=== PATIENT | male | born 1975 | race Caucasian/White ===

== ENCOUNTER 2022-04-21 10:58 | Emergency (ER) | payer OTHER, SELFPAY ==
--- NOTE | ~2022-04-21 | CT_ITS ---
EXAMINATION: CT ABDOMEN AND PELVIS WITH CONTRAST CLINICAL INFORMATION: Left lower quadrant pain status post hernia repair COMPARISON: None TECHNIQUE: Multidetector volumetric images were obtained from the superior aspect of the liver through the pubic symphysis following administration 85 mL of Omnipaque 350 intravenous contrast. Sagittal and coronal reformatted images were obtained on the technologist's workstation. Oral contrast: No This CT examination was performed using dose optimization techniques as appropriate, variously including the following: *Automated exposure control *Adjustment of mA and/or kV according to patient size (this includes techniques or standardized protocols for targeted exams where dose is matched to indication/reason for exam; i.e. extremities or head) *Use of iterative reconstruction technique DLP: 675 mGy-cm FINDINGS: LUNG BASES: Bilateral basilar atelectasis LIVER, GALLBLADDER, AND BILIARY TREE: The liver is normal in size, shape, and attenuation. No focal hepatic lesion or biliary ductal dilatation is present. The gallbladder is not seen. PANCREAS: Unremarkable. SPLEEN: Unremarkable. ADRENAL GLANDS: Unremarkable. KIDNEYS AND URETERS: The kidneys are normal in size, shape, and attenuation. No hydronephrosis, hydroureter, or calculi seen. No perinephric stranding. BLADDER: Unremarkable. GASTROINTESTINAL TRACT: The small and large bowel are unremarkable. The appendix is unremarkable. ABDOMINAL WALL: In the left inguinal region there is fluid density with mild soft tissue stranding. This may represent postoperative change. Breast prominent vessels also in the region.. Findings also suggest the beginnings of a small right inguinal herniation LYMPH NODES: Normal. VASCULAR: Unremarkable. PELVIC VISCERA: Prominent prostate. OSSEOUS STRUCTURES: Unremarkable. CT/CT abdomen pelvis w IV con IMPRESSION: In the left inguinal canal region there is fluid density and some soft tissue stranding. Findings may suggest postoperative appearance. Correlation recommended clinically. Attention to follow-up. Findings suggest the beginnings of a small right inguinal herniation. Prominent prostate is noted. Bilateral basilar atelectasis Fleischner guidelines were followed.
[2022-04-21 11:39] VITALS: BP 108/63; PULSE 66; RESP 18; TEMP 35.7; O2SAT 97; BMI 28.6
--- OUTSIDE RECORDS SUMMARY | 2022-04-21 12:19 | XMS_ITS | Continuity of Care Document ---
:[address] [facility] Care Team Providers Name Role Phone [facility] Unavailable Unavailable Problems Combined list of problems from Department of Defense and Veterans Affairs facilities. It does not include entries that were removed or entered in error. Problem Status Onset Date Problem Type Date of Comments Source Resolution visit for: Inactive Condition [facility] preoperative exam astigmatism - Active Condition [facility] regular visit for: Active Condition [facility] administrative purpose refractive error - Active Condition D oD myopia ganglion right Active Condition [facility] wrist Medications Combined list of outpatient medications from Department of Defense and Veterans Affairs facilities. Medications provided include 1) outpatient medications from the last 15 months, and 2) patient-reported medications. Medication Details Route Status Patient Prescription Prescription Last Ordering Order Source Instructions Expires Number Dispense Provider Date Date atorvastati Oral Ordered 09/29/2022 A mbulat n 40 mg 40 mg, Oral, Daily, # 90 EA, 1 total refill(s), Hard Stop, DANG [Federal Rx: #90 last filled 09/29/21] (given ory tablet by Pharmac mouth) y clindamycin Ordered 08/30/2022 A mbulat 1% lotion See Rx Instructions, BID, # 60 mL, 2 total refill(s), Hard Stop, DANG [Federal Rx: #60 last filled 11/14/21] ory [60mL] Pharmac y sertraline Oral Ordered 09/15/2022 Am bulat 25 mg 25 mg, Oral, Daily, # 90 EA, 3 total refill(s), Hard Stop, DANG [Federal Rx: #90 last filled 12/12/21] (given ory tablet by Pharmac mouth) y Allergies, Adverse Reactions, Alerts Combined list of allergies from Department of Defense and Veterans Affairs facilities. It does not include entries that were removed or entered in error. Substance Category Reaction Severity Reaction Status Date Comments S ource type Reported No Known Drug Drug active 10/19/2005 Ramya munroe Allergies allergy allergy [facility] Immunizations Combined list of available immunizations from the Department of Defense and Veterans Affairs facilities. Immunization Series Date Administered Site Reaction Lot CVX Drug St atus Comments Source Given By Number Code Orthotist Or Prosthetist COVID Vaccine [id number] PFIZER complet C OVID Vaccine ? Pfizer Ambulat ? Pfizer 2020 ed 05/21/21 ory Given Pharmac y influenza, [id number] 158 GlaxoSmithKli comple t influenza, injectable, quadrivalent Ambulat injectable, 2020 ne ed 03/03/21 ory quadrivalent Given P harmac y COVID Vaccine [id number] 207 complet C OVID Vaccine ? Moderna Ambulat ? Moderna 2020 ed 10/15/20 ory Given Pharmac y tetanus, [id number] sanofi complet tetan us, diphtheria, acellular pertussis Ambulat diphtheria, 2020 pasteur ed ory acellular Given Phar mac pertu is y COVID Vaccine [id number] 207 complet C OVID Vaccine ? Moderna Ambulat ? Moderna 2020 ed 09/16/20 ory Given Pharmac y influenza, [id number] Seqirus complet in fluenza, seasonal, injectable-pf Ambulat seasonal, 2019 579 ed 03/16/20 or y injectable-pf Given Pharmac y influenza, [id number] 158 complet infl uenza, injectable, quadrivalent Ambulat injectable, 2018 IBED ed 04/20/19 ory quadrivalent Given P harmac y influenza, 4461 158 Seqirus complet in fluenza, injectable, quadrivalent Ambulat injectable, 2017 1A ed 03/29/18 ory quadrivalent Given P harmac y influenza, 22 4461 158 Seqirus (SEQ) comp let influenza DoD injectable, 2017 1A ed , quadrivalent, inject abl contains e, preservative quadriv al ent, contains preservat amita influenza, TRANSCR 158 complet infl uenza, injectable, quadrivalent Ambulat injectable, 2016 IBED ed 03/25/17 ory quadrivalent Given P harmac y influenza, 1 Transcribed complet influenza DoD injectable, 2017 (TRS) ed , quadrivalent, inject abl contains e, preservative quadriv al ent, contains preservat amita influenza, 1000704 141 Seqirus complet in fluenza, seasonal, injectable Ambulat seasonal, 2015 1A ed 03/15/16 or y injectable Given Pha rmac y Influenza, 1 [id number] 141 Seqirus (SEQ) comp let Influenza DoD , 2015 1A ed , injectable seasonal, injectabl e influenza, 11240307 141 CSL Behring comple t influenza, seasonal, injectable Ambulat , 2014 1A ed 02/26/15 or y injectable Given Pha rmac y Influenza, 19 [id number] 141 CSL complet Infl uenza DoD , 2014 1A Biotherapies, ed , injectable Inc. (CSL) seas onal, injectabl e hepatitis B 4L 43 GlaxoSmithKli compl et hepatitis B adult vaccine Ambulat adult vaccine 2014 ne ed 07/22/14 ory Given Pharmac y hepatitis B 3 4L 43 SmithKline complet hepatitis DoD vaccine, 2014 (SKB) ed B adult dosage vaccine , adult dosage influenza, 141 ID Biomedical comple t influenza, seasonal, injectable Ambulat , 2013 ed 04/15/14 o ry injectable Given Pha rmac y Influenza, 1 141 (IDB) complet Influe nza DoD , 2013 ed , injectable seasonal, injectabl e hepatitis B 4L 43 GlaxoSmithKli compl et hepatitis B adult vaccine Ambulat adult vaccine 2013 ne ed 4 ory Given Pharmac y hepatitis B 2 3744L 43 SmithKline complet hepatitis DoD vaccine, 2013 (SKB) ed B adult dosage vaccine , adult dosage hepatitis B 3744L 43 GlaxoSmithKli compl et hepatitis B adult vaccine Ambulat adult vaccine 2013 ne ed 11/20/13 ory Given Pharmac y hepatitis B 1 3744L 43 SmithKline complet hepatitis DoD vaccine, 2013 (SKB) ed B adult dosage vaccine , adult dosage influenza, [id number] 141 CSL Behring comple t influenza, seasonal, injectable Ambulat , 2012 1A ed 04/10/13 o ry injectable Given Pha rmac y Influenza, 1 8640307 141 CSL complet Infl uenza DoD , 2012 1A Biotherapies, ed , injectable Inc. (CSL) seas onal, injectabl e influenza, 7040308 141 CSL [employer]ring comple t influenza, seasonal, injectable Ambulat seasonal, 2011 1A ed 03/28/12 o ry injectable Given Pha rmac y Influenza, 16 7040308 141 CSL complet Infl uenza DoD seasonal, 2011 1A Biotherapies, ed , injectable Inc. (CSL) seas onal, injectabl e influenza 094P 111 Medimmune Inc compl et influenza virus vaccine, live Ambulat virus 2010 ed 04/20/11 ory vaccine, live Given Pharmac y influenza 15 094P 111 MedImmune, complet influenza DoD virus 2010 Inc. (MED) ed virus vaccine, vaccine, live, live, attenuated, attenuat e for d, for intranasal intranasa use l use tetanus, [id number] 115 sanofi complet tetan us, diphtheria, acellular pertussis Ambulat diphtheria, 2010 pasteur ed 1 ory acellular Given Phar mac pertu is y tetanus 1 900AA 115 Sanofi complet tetanu s DoD toxoid, 2010 Pasteur ([facility]) ed toxo id, reduced reduced diphtheria diphtheri toxoid, and a toxoid , acellular and pertu is acellular vaccine, pertussis adsorbed vaccine, adsorbed influenza 061P 111 Medimmune Inc compl et influenza virus vaccine, live Ambulat virus 2009 ed 05/02/10 ory vaccine, live Given Pharmac y influenza 1 061P 111 MedImmune, complet influenza DoD virus 2009 Inc. (MED) ed virus vaccine, vaccine, live, live, attenuated, attenuat e for d, for intranasal intranasa use l use anthrax 11/20/ UGD059 24 Emergent complet anthr ax vaccine Ambulat vaccine 2009 Biosolutions ed 0 ory Given Pharmac y anthrax 5 [id number] 24 Emergent complet anthr ax DoD vaccine 2009 BioDefense ed vaccine [employer] [place] (MIP) Novel 050P 127 Novartis complet Novel [id number], injectable Ambulat influenza-H1N 2009 1 Pharmaceutica ed 07/31/09 ory 1-09, ls Given Pharmac injectable y Novel 1 050P 127 Novartis complet Novel DoD influenza-H1N 2010 1 Pharmaceutica ed influenza 1-09, l Kyaw. (NOV) -H1N1- 09, injectable injectabl e influenza [id number] 111 Mediune Inc compl et influenza virus vaccine, live Ambulat virus 2008 ed 04/03/09 ory vaccine, live Given Pharmac y influenza 1 [id number] 111 MedImmune, complet influenza DoD virus 2008 Inc. (MED) ed virus vaccine, vaccine, live, live, attenuated, attenuat e for d, for intranasal intranasa use l use typhoid Vi AM478-5 101 sanofi complet typ hoid Vi capsular polysaccharide vac Ambulat capsular 2007 pasteur ed 05/22/08 o ry polysaccharid Given Pharmac e vac y typhoid Vi 1 ZP403-7 101 Sanofi complet typ hoid DoD capsular 2007 Pasteur ([facility]) ed Vi polysaccharid capsul ar e vaccine polysacch aride vaccine influenza [id number] 111 Medimmune Inc compl et influenza virus vaccine, live Ambulat virus 2007 ed 04/17/08 ory vaccine, live Given Pharmac y influenza 1 792000V 111 MedImmune, complet influenza DoD virus 2007 Inc. (MED) ed virus vaccine, vaccine, live, live, attenuated, attenuat e for d, for intranasal intranasa use l use influenza [id number] 111 Medimmune Inc compl et influenza virus vaccine, live Ambulat virus 2006 ed 04/19/07 ory vaccine, live Given Pharmac y influenza 1 285090C 111 MedImmune, complet influenza DoD virus 2006 Inc. (MED) ed virus vaccine, vaccine, live, live, attenuated, attenuat e for d, for intranasal intranasa use l use influenza [id number] 15 sanofi complet infl uenza virus vaccine,split Ambulat virus 2005 pasteur ed 04/21/06 ory vaccine,split Given Pharmac y influenza 1 [id number] 15 Sanofi complet infl uenza DoD virus 2005 Pasteur ([facility]) ed virus vaccine, vaccine, split virus split (incl. virus purified (incl. surface purified antigen)-reti surfac e red CODE antigen)- retired CODE varicella 0 () Not varicella DoD virus vaccine 2006 Given virus vaccine typhoid Z0276 41 sanofi complet typhoid vaccine, parenteral Ambulat vaccine, 2005 pasteur ed 02/22/06 or y parenteral Given Pha rmac y typhoid 1 Z0276 41 Sanofi complet typhoid DoD vaccine, 2005 [facility] ([facility]) ed vac cine, parenteral, parenter a other than l, other acetone-kille than d, dried acetone-k illed, dried influenza [id number] 15 sanofi complet infl uenza virus vaccine,split Ambulat virus 2004 pasteur ed 04/21/05 ory vaccine,split Given Pharmac y influenza 1 [id number] 15 Sanofi complet infl uenza DoD virus 2004 [facility] ([facility]) ed virus vaccine, vaccine, split virus split (incl. virus purified (incl. surface purified antigen)-reti surfac e red CODE antigen)- retired CODE influenza [id number] 111 Mediune Inc compl et influenza virus vaccine, live Ambulat virus 2004 ed 07/13/04 ory vaccine, live Given Pharmac y influenza 0 [id number] 111 MedImmune, complet influenza DoD virus 2004 Inc. ([facility]) ed virus vaccine, vaccine, live, live, attenuated, attenuat e for d, for intranasal intranasa use l use typhoid X0481 41 sanofi complet typhoid vaccine, parenteral Ambulat vaccine, 2003 [facility] ed 02/26/04 o ry parenteral Given Pha rmac y typhoid 0 X0481 41 Sanofi complet typhoid DoD vaccine, 2003 [facility] ([facility]) ed vac cine, parenteral, parenter a other than l, other acetone-kille than d, dried acetone-k illed, dried anthrax 01/21/ AYJ647 24 Emergent complet anthr ax vaccine Ambulat vaccine 2003 Biosolutions ed 4 ory Given Pharmac y anthrax 5 01/21/ MUN053 24 Emergent complet anthr ax DoD vaccine 2003 [facility] vaccine [employer] [place] ([facility]) anthrax 06/26/ ZQC395 24 Emergent complet anthr ax vaccine Ambulat vaccine 2003 Biosolutions ed ory Given Pharmac y anthrax 4 06/26/ CUN790 24 Emergent complet anthr ax DoD vaccine 2003 [facility] vaccine [employer] [place] ([facility]) tuberculin 10/05/ [id number] 96 sanofi complet tub erculin purified protein derivative Ambulat purified 2002 a pasteur ed 03/21/03 o ry protein Given Pharma c derivative y influenza 5424 16 sanofi complet influ morena virus vaccine, whole virus Ambulat virus 2002 pasteur ed 03/21/03 ory vaccine, Given Pharm ac whole virus y influenza 0 5424 16 Sanofi complet influ morena DoD virus 2002 [facility] ([facility]) ed virus vaccine, vaccine, whole virus whole virus anthrax FAV 071 24 Emergent complet anth rax vaccine Ambulat vaccine 2002 Biosolutions ed ory Given Pharmac y anthrax 3 01/06/ FAV 071 24 Emergent complet anth rax DoD vaccine 2002 [facility] ed vaccine [employer] [place] ([facility]) anthrax 12/19/ FAV 071 24 Emergent complet anth rax vaccine [facility]ul[facility] ory Given Pharmac y anthrax 2 12/19/ FAV 071 24 Emergent complet anth rax DoD vaccine [facility] [employer] [place] ([facility]) meningococcal 12/10/ [id number] 32 sanofi complet meningococcal polysaccharide (MPSV4) Ambulat polysaccharid 2002 pasteur ed 12/10 ory e (MPSV4) Given Phar mac y meningococcal 0 12/10/ [id number] 32 Sanofi complet meningoco DoD polysaccharid 2002 [facility] ([facility]) ed ccal e vaccine polysacch (MPSV4) aride vaccine (MPSV4) vaccinia [id number] Wyeth complet vaccin ia (smallpox) vaccine Ambulat (smallpox) 2002 Laboratories ed 02/09 ory vaccine Given Pharma c y anthrax 12/03/ POU659 24 Emergent complet anthr ax vaccine Ambulat vaccine 2003 Biosolutions ed ory Given Pharmac y anthrax 1 [id number] 24 Emergent complet anthr ax DoD vaccine [facility] vaccine [employer] [place] ([facility]) vaccinia 0 0071 75 Wyeth-Ayerst complet vaccinia DoD (smallpox) 2002 ([facility]) ed (smallpox vaccine ) vaccine tuberculin [id number] 96 sanofi complet tub erculin purified protein derivative Ambulat purified 2001 pasteur ed 04/19/02 o ry protein Given Pharma c derivative y influenza [id number] 16 sanofi complet infl uenza virus vaccine, whole virus Ambulat virus 2001 pasteur ed 04/19/02 ory vaccine, Given Pharm ac whole virus y tetanus-dipht 526AA 09 sanofi complet tetanus-diphth toxoids (Td) adult/adol Ambulat h toxoids 2001 pasteur ed 04/19/02 ory (Td) Given Pharmac adult/adol y tetanus and 0 526AA 09 Sanofi complet te tanus DoD diphtheria 2001 Pasteur ([facility]) ed a nd toxoids, diphtheri adsorbed, a preservative toxoids , free, for adsorbed, adult use (2 preserv at Lf of tetanus amita fr ee, toxoid and 2 for kelly lt Lf of use (2 Lf diphtheria of toxoid) tetanus toxoid and 2 Lf of diphtheri a toxoid) influenza 0 3AA 16 Sanofi complet infl uenza DoD virus 2001 Pasteur ([facility]) ed virus vaccine, vaccine, whole virus whole virus hepatitis A complet hepat itis A adult vaccine Ambulat adult vaccine 2001 ed 2 ory Given Pharmac y typhoid complet typhoid v accine, parenteral Ambulat vaccine, 2001 ed 02/28/02 ory parenteral Given Pha rmac y typhoid 0 () complet typhoid D oD vaccine, 2001 ed vaccine, parenteral, parenter a other than l, other acetone-kille than d, dried acetone-k illed, dried hepatitis A 2 () complet hepat itis DoD vaccine, 2001 ed A adult dosage vaccine , adult dosage tuberculin [id number] 96 sanofi complet tub erculin purified protein derivative Ambulat purified 2000 pasteur ed 04/19/01 o ry protein Given Pharma c derivative y hepatitis A 0507L 52 Merck & complet hep atitis A adult vaccine Ambulat adult vaccine 2000 Company Inc ed 04/19/01 ory Given Pharmac y influenza [id number] 16 sanofi complet infl uenza virus vaccine, whole virus Ambulat virus 2000 pasteur ed 04/19/01 ory vaccine, Given Pharm ac whole virus y influenza 0 [id number] 16 Sanofi complet infl uenza DoD virus 2000 Pasteur ([facility]) ed virus vaccine, vaccine, whole virus whole virus hepatitis A 1 0507L 52 Merck (MSD) complet hepatitis DoD vaccine, 2000 ed A adult dosage vaccine , adult dosage tuberculin [id number] 96 sanofi complet tub erculin purified protein derivative Ambulat purified 2000 pasteur ed 06/22/00 or y protein Given Pharma c derivative y influenza 8210 16 Wyeth complet influ morena virus vaccine, whole virus Ambulat virus 2000 Laboratories ed 06/22/00 ory vaccine, Given Pharm ac whole virus y influenza 0 8210 16 Wyeth-Ayerst comple t influenza DoD virus 2000 ([facility]) ed virus vaccine, vaccine, whole virus whole virus hepatitis A 2H 52 Merck & complet hep atitis A adult vaccine Ambulat adult vaccine 1999 [employer] ed 04/20/00 ory Given Pharmac y typhoid R0320 41 sanofi complet typhoid vaccine, parenteral Ambulat vaccine, 1999 pasteur ed 04/20/00 o ry parenteral Given Pha rmac y typhoid 0 R0320 41 Sanofi complet typhoid DoD vaccine, 1999 [facility] ([facility]) ed vac cine, parenteral, parenter a other than l, other acetone-kille than d, dried acetone-k illed, dried hepatitis A 1 2H 52 Merck (MSD) complet hepatitis DoD vaccine, 1999 ed A adult dosage vaccine , adult dosage influenza 8235 16 Wyeth complet influ morena virus vaccine, whole virus Ambulat virus 1998 Laboratories ed 9 ory vaccine, Given Pharm ac whole virus y influenza 0 8235 16 Wyeth-Ayerst comple t influenza DoD virus 1998 ([facility]) ed virus vaccine, vaccine, whole virus whole virus influenza [id number] 16 sanofi complet infl uenza virus vaccine, whole virus Ambulat virus 1997 pasteur ed 03/03/98 ory vaccine, Given Pharm ac whole virus y influenza 0 969170 16 Sanofi complet infl uenza DoD virus 1997 Pasteur ([facility]) ed virus vaccine, vaccine, whole virus whole virus typhoid, 04/01/ 53 complet typhoid, parenteral, AKD Ambulat parenteral, 1997 ed 09/15/97 o ry AKD Given Pharmac y typhoid complet typhoid v accine, parenteral Ambulat vaccine, 1997 ed 09/15/97 ory parenteral Given Pha rmac y typhoid 0 () complet typhoid D oD vaccine, 1997 ed vaccine, parenteral, parenter a other than l, other acetone-kille than d, dried acetone-k illed, dried typhoid 2 () complet typhoid D oD vaccine, 1997 ed vaccine, parenteral, parenter a acetone-kille l, d, dried acetone-k (U.S. illed, ) dried (U.S. ) influenza complet influen za virus vaccine, whole virus Ambulat virus 1996 ed 04/17/97 ory vaccine, Given Pharm ac whole virus y influenza 0 () complet influen za DoD virus 1996 ed virus vaccine, vaccine, whole virus whole virus yellow fever complet yell ow fever vaccine Ambulat vaccine 1994 ed 07/18/94 ory Given Pharmac y yellow fever 0 () complet yell ow DoD vaccine 1994 ed fever vaccine measles, 0 () Not measles, D oD mumps and 1992 Given mumps and rubella virus rubell a vaccine virus vaccine tetanus-dipht complet tet anus-diphth toxoids (Td) adult/adol Ambulat h toxoids 1992 ed 09/15/92 ory (Td) Given Pharmac adult/adol y poliovirus complet poliov irus vaccine, live, oral Ambulat vaccine, 1992 ed 09/15/92 ory live, oral Given Pha rmac y trivalent 0 () complet trivale nt DoD poliovirus 1992 ed polioviru vaccine, s live, oral vaccine, live, oral tetanus and 0 () complet tetan us DoD diphtheria 1992 ed and toxoids, diphtheri adsorbed, a preservative toxoids , free, for adsorbed, adult use (2 preserv at Lf of tetanus amita fr ee, toxoid and 2 for kelly lt Lf of use (2 Lf diphtheria of toxoid) tetanus toxoid and 2 Lf of diphtheri a toxoid) Vital Signs Combined list of inpatient and outpatient Vital Signs from Department of Defense and Veterans Affairs, ranging from 12 months to all on record, depending upon the facility. Vital Sign Value Date Comments Source No data available for this section Ambulatory Pharmacy Encounters Combined list of: 1) Encounters from Department of Veterans Affairs facilities going back up to the last 18 months. 2) Encounters from the Department of Defense facilities going back up to 280 months. Location Location Encounter Encounter Reason Attending ADM DC Stat us Disposition Source Details Type Number For Provider Date Date Visit OUTPATIENT [id number] [facility], 10/18 Releas ed w/o [facility] RIGHT Jun Limitations [facility] S[facility] [place](Brittany BRENNEN edson THAT Care HAS Red DEVELOP Team AND Renetta Rodriguez) NOT GO DOWN TELE [id number] [facility], 10/28 [facility] CONSULT [facility]( [facility]) OUTPATIENT [id number] ANNUAL [facility], 11/04 Rele ased w/o [facility] EXAM [facility]O Limitations [facility]( [facility]) OUTPATIENT [id number] [facility], 11/18 Relea sed w/o [facility]O Limitations [facility]( [facility]) TELE [id number] [facility], 09/27 [facility] CONSULT [facility]( [facility]) OUTPATIENT [id number] ANNUAL [facility], 10/02 Rele ased w/o [facility] EXAM FAUSTO Limitations [facility]( [facility]) OUTPATIENT [id number] [facility], 12/11 [facility] d w/o [facility]( LIZBETH D Limitations [facility]) OUTPATIENT [id number] Notes KWESI VEGA 01/16 Relea sed w/o JAVIER Boss Entered Limitations Johnathon io by: Antony Whittaker [place] [phone](A ------- FNG 158 ------- Med ------- Sq-FM) ------- -- [facility] OUTPATIENT [id number] Notes JOHANNA, 10/11 Release d w/o JAVIER Boss Entered [facility]ER[facility] /2018 Limitations Anto nio by: MIKIE SPENCER y ,STEVEN Treatme N [place] Facilit [place], [place] [phone](A 0936 FNG 158 ------- Med ------- Sq-FM) ------- ------- -- phaq OUTPATIENT [id number] DINA DIDI, 01/14 Released w/o ROMMEL E. Limitations [facility]) OUTPATIENT [id number] Jessica VEGA, 11/22 Released w /o JAVIER Boss 1 Entered YLNDSEY Limitations A ntonio by: Carey Dominguez E PERICO nt Nov Facilit 2018 y, [place] 133[address](A ------- FNG 158 ------- Med ------- Sq-FM) ------- -- PHAQ OUTPATIENT [id number] Jessica DUPONT, 03/16 Released w/o JAVIER Boss 6 Entered MICHEAL Limitations Johnathon io by: Willy Valdivia Treatme Feb Facilit 1440 y, [place] ------- [phone](A ------- FNG 158 ------- Med ------- Sq-FM) -- PHA Lifetime [id number] 07/25 Ambulat Pharmacy ory Pharmac y History [id number] 07/27 07/27 [place] [address] /2021 Facilit y Access Procedures Combined list of: 1) Procedures from Department of Veterans Affairs facilities going back up to the last 18 months, not all VA non-surgical procedures are included; 2) All procedures from the Department of Defense facilities. Procedure Procedure Type Code Date Perfomer Comments Sourc e No data is provided DoD for this section because a [facility] internal system error occurred when retrieving data. A future request for this document may succe fully include data for this section if the system i ue has been resolved. No data available Am bulatory for this section Pha rmacy Social History Combined list of available smoking, tobacco, and other social history from Department of Defense andVeterans Affairs facilities. Social History Type Response Date Comment Source This section is an empty social history section. DoD Assessment and Plan Combined list of future care activities from Department of Defense and Veterans Affairs facilities (e.g., assessment and plan notes, appointments, orders, and referrals). Additional future care activities may be listed in the Plan of Care section. Result Assessment and Plan Date Source Assessment and Plan No data available for this 04/21/2022 A mbulatory Pharmacy section Functional Status Combined list of recent functional and cognitive assessments recorded at Department of Defense and Veterans Affairs (VA).VA Functional Rumsey Measurement (FIM) Scale: 1 = Total Assistance (Subject = 0% +), 2 = Maximal Assistance (Subject = 25% +), 3 = Moderate Assistance (Subject = 50% +), 4 = Mi nimal Assistance (Subject = 75% +), 5 = Supervision, 6 = Modified Rumsey (Device), 7 = Complete Rumsey (Timely, Safely). Assessment Source Assessment Type Assessment Assessment Assessmen t Date/Time Skill Score Details No data available for this section
--- NOTE | 2022-04-21 12:30 | ED_ITS ---
HPI - Abdominal Pain General Chief Complaint: Abdominal Pain Stated Complaint: lower abd inj Time Seen by Provider: 04/21/22 12:29 Source: patient Mode of arrival: ambulatory Limitations: no limitations History of Present Illness HPI narrative: 46-year-old male presents for left lower quadrant abdominal pain that started while he was doing sit-ups during physical exam. Patient normally can do at least 60 pushups and sit-ups without difficulty however today he could only do 25. The pain radiates from his left lower quadrant to left inguinal groin. He does have a history hernia repair with a mesh. He does report a distant episode of hematuria after strenuous physical exercise however that has resolved. Is not report fevers or chills, does not have any difficulty eating or drinking. He is concerned he is having a difficult time walking because of the pain. MD elicited complaint: abdominal pain Onset (ago): day(s) (1) Pain Consistency: intermittent Location: LLQ and groin Severity: moderate Pain scale (0-10): 7 Quality: aching Radiation: LLQ Migration to: other (Left inguinal) Exacerbating factors: movement Relieving factors: rest Context: other (History of left inguinal repair) Associated symptoms: denies other symptoms Related Data Allergies Allergy/AdvReac Type Severity Reaction Status Date / Time acetaminophen [From Percocet] Allergy Vomiting Verified 04/21/22 12:11 oxycodone [From Percocet] Allergy Vomiting Verified 04/21/22 12:11 Review of Systems Review of Systems Constitutional: No Fever, No Chills ENT/Mouth: No Ear Pain, No Hoarseness, No sore throat Eyes: No Eye Pain, No Swelling, No Redness, No Foreign Body Cardiovascular: No Chest Pain, No SOB Respiratory: No Cough, No Dyspnea Gastrointestinal: No Nausea, No Vomiting, No Diarrhea, positive right lower quadrant abdominal Pain Genitourinary: No Dysuria, No Hematuria Musculoskeletal: No joint pain, No Myalgias, No Joint Swelling Skin: No Skin lacerations, No rash Neuro: No Weakness, No Numbness, No Paresthesias, No Loss of Consciousness, No Dizziness, No Headache Psych: No Anxiety/Panic, No Depression Heme/Lymph: no easy bruising, no Lymphadenopathy Endocrine: No Polyuria, No Polydipsia Yes all other systems are reviewed and are negative [facility] Past Medical History Attestation statement: The following information was validated with the patient. Source: old records reviewed Social History Social History Advance Directives: No Advance Directives Information Provided: No Physical Exam ED Vital Signs: Vital Signs - 24 hr 04/21/22 11:39 Temperature 96.2 F L Pulse Rate 66 Respiratory Rate 18 Blood Pressure 108/63 Pulse Oximetry 97 BMI result Body Mass Index 28.6 Appearance: Alert. Oriented X3. No acute distress. Eyes: Pupils equal, round and reactive to light. ENT: Pharynx normal. Neck: Normal inspection. Neck supple. CVS: Normal heart rate and rhythm. Pulses normal. Respiratory: No respiratory distress. Breath sounds normal. Abdomen: Soft and left lower quadrant tenderness to palpation. No rigidity or distention. Skin: Skin warm and dry. Normal skin color. Normal skin turgor. Extremities: No lower extremity edema. Gait well-balanced well coordinated. Neuro: No motor deficit. No sensory deficit. Cranial nerves 2-12 intact. Course Course Course Narrative: 46-year-old male presents for left lower quadrant abdominal pain that started while he was in the middle of a physical exam for the . He he does have a history of cholecystectomy and inguinal hernia repair with mesh . He does not feel any bulging, and denies fevers and chills. Physical exam indicates left lower quadrant tenderness to palpation without palpable bulge. No testicular pain or dysuria. At this time patient states that his pain is manageable, does not want any medications at this time. Will order CT scan of abdomen pelvis. 16:00. CT abdomen pelvis negative for acute findings. Does show bibasilar atelectasis, and left inguinal canal region fluid density with some soft tissue stranding, with the beginnings of a small right inguinal hernia. Disc made for patient to take [place] [facility] healthcare provider. Patient verbalized understanding of and agrees to plan of care discharge home. Verbalized understanding of signs and symptoms indicating need for any intervention MDM - Abdominal Pain Differential Diagnosis Differential diagnosis: Likely abdominal pain, bowel perforation, diverticulitis and small bowel obstruction Differential diagnosis narrative:: Incarcerated Inguinal hernia Medical Records Attestation: I reviewed the patient's medical records. Lab Data Attestation: I reviewed the patient's lab results. Result diagrams: 04/21/22 13:04 04/21/22 13:04 Labs: Lab Results 04/21/22 04/21/22 Range/Units 13:04 13:04 WBC 6.7 (4.8-10.8) X10*3/uL RBC 5.38 (4.60-5.80) X10*6/uL Hgb 16.0 (14.0-18.0) g/dl Hct 47.4 (42.0-52.0) % MCV 88.1 (80.0-98.0) fL MCH 29.7 (27.0-33.0) pg MCHC 33.8 (31.0-36.0) g/dl RDW 13.3 (11.0-16.0) % Plt Count 312 (160-400) X10*3/uL MPV 8.7 L (9.4-12.4) fL Immature Gran % (Auto) 0.4 (0.0-0.4) % Neut % (Auto) 70.5 (45-73) % Lymph % (Auto) 21.7 (20-40) % [place] % (Auto) 6.3 (2-11) % Eos % (Auto) 0.7 (0-4) % Baso % (Auto) 0.4 (0-2) % Lymph # (Auto) 1.5 (1.2-4.9) X10*3/uL [place] # (Auto) 0.4 (0.1-1.2) X10*3/uL Eos # (Auto) 0.1 (0.0-0.4) X10*3/uL Baso # (Auto) 0.0 (0.0-0.2) X10*3/uL Abs Immat Gran (auto) 0.03 (0.00-0.03) X10*3/uL Absolute Neuts (auto) 4.7 (2.0-8.3) x10*3/uL Absolute Nucleated RBC 0.000 (0.0-0.012) X10*3/uL Nucleated RBC % (auto) 0.0 (0.0-0.2) /100WBC Sodium 140 (135-145) mmol/L Potassium 4.5 (3.3-5.1) mmol/L Chloride 105 (96-108) mmol/L Carbon Dioxide 22 (22-29) mmol/L Anion Gap 18 (12-20) BUN 12 (9-16) mg/dL Creatinine 0.82 (0.5-1.4) mg/dL Estim Creat Clear Calc 120.9 Estimated GFR > 60 Random Glucose 100 (60-115) mg/dL Calcium 9.1 (8.4-10.2) mg/dL Imaging Data CT scan - abdomen: Attestation: I personally reviewed and interpreted this imaging study as follows: Radiologist's impression: EXAMINATION: CT ABDOMEN AND PELVIS WITH CONTRAST? CLINICAL INFORMATION: Left lower quadrant pain status post hernia repair? COMPARISON: None? TECHNIQUE: Multidetector volumetric images were obtained from the superior aspect of the liver through the pubic symphysis following administration 85 mL of Omnipaque 350 intravenous contrast. Sagittal and coronal reformatted images were obtained on the technologist's workstation.? Oral contrast: No This CT examination was performed using dose optimization techniques as appropriate, variously including the following: *Automated exposure control *Adjustment of mA and/or kV according to patient size (this includes techniques or standardized protocols for targeted exams where dose is matched to indication/reason for exam; i.e. extremities or head) *Use of iterative reconstruction technique DLP: 675 mGy-cm FINDINGS: LUNG BASES: Bilateral basilar atelectasis? LIVER, GALLBLADDER, AND BILIARY TREE: The liver is normal in size, shape, and attenuation. No focal hepatic lesion or biliary ductal dilatation is present. The gallbladder is not seen.? PANCREAS: Unremarkable.? SPLEEN: Unremarkable.? ADRENAL GLANDS: Unremarkable.? KIDNEYS AND URETERS: The kidneys are normal in size, shape, and attenuation. No hydronephrosis, hydroureter, or calculi seen. No perinephric stranding. ? BLADDER: Unremarkable.? GASTROINTESTINAL TRACT: The small and large bowel are unremarkable. The appendix is unremarkable.? ABDOMINAL WALL: In the left inguinal region there is fluid density with mild soft tissue stranding. This may represent postoperative change. Breast prominent vessels also in the region.. Findings also suggest the beginnings of a small right inguinal herniation ?LYMPH NODES: Normal. VASCULAR: Unremarkable. PELVIC VISCERA: Prominent prostate.? OSSEOUS STRUCTURES: Unremarkable.? CT/CT abdomen pelvis w IV con IMPRESSION: In the left inguinal canal region there is fluid density and some soft tissue stranding. Findings may suggest postoperative appearance. Correlation recommended clinically. Attention to follow-up. ? Findings suggest the beginnings of a small right inguinal herniation. ? Prominent prostate is noted. ? Bilateral basilar atelectasis? ? Fleischner guidelines were followed. Discharge Plan Discharge Clinical Impression: Abdominal pain Patient Disposition: Home, Self-Care Instructions: Abdominal Pain (ED) Additional Instructions: You were evaluated for left lower quadrant abdominal pain. CT scan indicates fluid collection and stranding to the left inguinal hernia site. Incidental findings are the beginnings of a right inguinal hernia. Limit physical activity until you follow-up with your [place]. Thank you for choosing this emergency department for evaluation. Please follow-up with primary care physician as needed. Return to the emergency department for any new, concerning, or worsening symptoms. Interventions: ED Discharge Assessment Last Done: 04/21/22 16:55 Discharge Date/Time: 04/21/22 16:55
[2022-04-21 13:08] LABS: MANUAL DIFF FLAG NO
[2022-04-21 13:11] LABS: Basophils Percent Auto 0.4 % (0-2); Eosinophils Absolute Auto 0.1 X10*3/uL (0.0-0.4); Eosinophils Percent Auto 0.7 % (0-4); Hematocrit 47.4 % (42.0-52.0); Imm Gran Abs Auto 0.03 X10*3/uL (0.00-0.03); Imm Gran Pct Auto 0.4 % (0.0-0.4); Lymphocytes Absolute Auto 1.5 X10*3/uL (1.2-4.9); Lymphocytes Percent Auto 21.7 % (20-40); Mean Corpuscular HGB Conc 33.8 g/dl (31.0-36.0); Mean Corpuscular Hemoglobin 29.7 pg (27.0-33.0); Mean Corpuscular Volume 88.1 fL (80.0-98.0); Mean Platelet Volume 8.7 fL (9.4-12.4); Monocytes Absolute Auto 0.4 X10*3/uL (0.1-1.2); Monocytes Percent Auto 6.3 % (2-11); Neutrophils Absolute Auto 4.7 x10*3/uL (2.0-8.3); Neutrophils Percent Auto 70.5 % (45-73); Platelet Count 312 X10*3/uL (160-400); Red Blood Count 5.38 X10*6/uL (4.60-5.80); Red Cell Distribution Width 13.3 % (11.0-16.0); White Blood Count 6.7 X10*3/uL (4.8-10.8)
[2022-04-21 13:48] LABS: Anion Gap 18 (12-20); Blood Urea Nitrogen 12 mg/dL (9-16); Calcium 9.1 mg/dL (8.4-10.2); Carbon Dioxide 22 mmol/L (22-29); Chloride 105 mmol/L (96-108); Creatinine Clr Calc Pharmacy 120.9; Estimated Glomerular Filt Rate > 60; Glucose Random 100 mg/dL (60-115); Potassium 4.5 mmol/L (3.3-5.1); Sodium 140 mmol/L (135-145)
[2022-04-21] MEDS: iohexoL 350 MG/ML 100 ML INFUS..BTL IV (14:11)
== END 2022-04-21 16:55 | disposition home or self-care (01) ==
PROVIDERS: Nurse Practitioner Family; Emergency Provider Emergency Medicine
DX: R10.32 Left lower quadrant pain (principal)
CPT/HCPCS: 36415; 74177; 80048; 85025; 99283; 99284; Q9967